=== PATIENT | male | born 1995 | race Caucasian/White ===

== ENCOUNTER 2020-05-22 15:53 | Emergency (ER) | payer SELFPAY ==
[~2020-05-22] VITALS: Ht 162.6 cm; Wt 71.2 kg
[2020-05-22 15:55] VITALS: BP_SYST 134
[2020-05-22] MEDS ORDERED: LORazepam 1 MG TABLET PO ONE (16:45)
[2020-05-22 18:26] VITALS: BP_SYST 134
== END 2020-05-22 18:26 | disposition home or self-care (01) ==
LOC: SED 15:53
DX: R06.4 Hyperventilation (principal); F41.9 Anxiety disorder, unspecified
CPT/HCPCS: 99283